=== PATIENT | male | born 1945 | race Caucasian/White ===

== ENCOUNTER 2018-10-11 06:02 | Inpatient (IN) | payer MEDICARE, OTHER ==
[~2018-10-11] VITALS: Ht 17.8 cm; Wt 61.7 kg
[2018-10-11] VITALS (12 sets, daily range): BP systolic 94–130; BP diastolic 49–72
--- NOTE | 2018-10-11 06:27 | NUR ---
GEETA FROM [facility]. TO ER BED 9. AAOX3. NO RESP DISTRESS NOTED, BREATHING EVEN AND UNLABORED. BROUGHT IN ABNORMAL LABS FROM SNF SENT BY PMD FOR FURTHER EVAL. PT HAS ELEVATED WBC REPORTED @ 22.71 AT FACILITY. PT IS AFEBRILE 98.8. AWAITING MD FOR EVAL.
--- NOTE | 2018-10-11 06:32 | NUR ---
IV LINE OBTAINED. LAB CALLED FOR BLOOD DRAW
--- NOTE | 2018-10-11 06:32 | NUR ---
EKG AT BEDSIDE
--- NOTE | 2018-10-11 06:45 | NUR ---
URINE COLLECTED VIA STRIGHT CATH NOTED YELLOWSIH GREENISH DISCHARGE FROM [facility]. AWARE
--- NOTE | 2018-10-11 06:50 | NUR ---
LAB AT BEDSIDE FOR DRAW
[2018-10-11] MEDS ORDERED: CEFTRIAXONE 1 G in IV D5W 50 ML IV ONE (07:00)
[2018-10-11] MEDS ORDERED: CEFTRIAXONE 1GM BAG (ER ONLY) 50 ML IV ONE (07:00)
[2018-10-11] MEDS ORDERED: FENTANYL PF 100MCG/2ML AMPUL ONE (07:00)
[2018-10-11] MEDS ORDERED: FENTANYL PF 100MCG/2ML AMPUL IV ONE (07:00)
[2018-10-11 07:09] LABS: APPEARANCE,URINE Cloudy (CLEAR); BILIRUBIN,URINE Negative (NEGATIVE); BLOOD, URINE Moderate Ery/uL (NEGATIVE); COLOR,URINE Yellow (YELLOW); KETONES,URINE Negative (NEGATIVE); LEUKOCYTE ESTERASE ,URINE Large (NEGATIVE); NITRITE, URINE Negative (NEGATIVE); PROTEIN,URINE >=300 mg/dl (NEGATIVE); UGLUCOSE Negative (NEGATIVE); UROBILINOGEN,URINE 0.2 EU/dL (0.2)
[2018-10-11 07:12] LABS: BASOPHILS % (AUTO) 0.1 % (0.0-2.0); HEMATOCRIT 42 % (39-51); HEMOGLOBIN 13.9 g/dL (13.5-17.5); LYMPHOCYTES # (AUTO) 0.8 /CMM (0.8-4.8); LYMPHOCYTES % (AUTO) 3.4 % (20.0-44.0); MEAN CORPUSCULAR HGB CONC 33 g/dl (31.0-36.0); MEAN CORPUSCULAR VOLUME 85 fL (80-96); MONOCYTES # (AUTO) 1.8 /CMM (0.1-1.30); MONOCYTES % (AUTO) 7.7 % (2.0-12.0); NEUTROPHILS # (AUTO) 20.3 /CMM (1.8-8.9); NEUTROPHILS % (AUTO) 88.8 % (43.0-81.0); PLATELET COUNT (AUTO) 285 /CMM (150-450); RED BLOOD CELL COUNT(AUTO) 4.93 MIL/uL (4.5-6.0); WHITE BLOOD COUNT (AUTO) 22.9 K/uL (4.3-11.0)
--- NOTE | 2018-10-11 07:17 | NUR ---
PT REFUSED PAIN MEDICATION ORDERED BY . AWARE
[2018-10-11 07:21] LABS: BACTERIA,URINE Few /HPF (None Seen); SQUAMOUS EPITHELIAL CELL,UR Few /HPF (None Seen); WBC,URINE 80-100 /HPF (0-3)
--- NOTE | 2018-10-11 07:31 | NUR ---
REPORT RECEIVED FROM ANALI LONG FOR CHRISTOPHER
--- NOTE | 2018-10-11 07:32 | NUR ---
INFORMED DR HERRERA OF PATIENTS HEART RATE OF 167, RECEIVED VERBAL ORDER OF NS 500CC TO RUN, CARRIED OUT
[2018-10-11 07:38] LABS: ALANINE AMINOTRANSFERASE 10 U/L (12-78); ALBUMIN 3.5 g/dL (3.4-5.0); ALKALINE PHOSPHATASE 93 U/L (46-116); ASPARTATE AMINOTRANSFERASE 5 U/L (15-37); BILIRUBIN,DIRECT 0.2 mg/dL (0.0-0.2); BILIRUBIN,TOTAL 0.5 mg/dL (0.2-1.0); CALCIUM, SERUM 9.5 mg/dL (8.5-10.1); CHLORIDE 88 mmol/L (98-107); GLUCOSE 127 mg/dL (74-106); SODIUM SERUM 121 mmol/L (136-145); TOTAL PROTEIN, SERUM 10.1 g/dL (6.4-8.2)
[2018-10-11 07:46] LABS: CARBON DIOXIDE 5 mmol/L (21-32); CREATININE 12.2 mg/dL (0.6-1.3); POTASSIUM 7.1 mmol/L (3.5-5.1); UREA NITROGEN, BLOOD 190 mg/dL (7-18)
[2018-10-11] MEDS ORDERED: Calcium Gluconate 0.465 MEQ/ML VIAL IV ONE (07:51)
[2018-10-11] MEDS ORDERED: INSULIN REGULAR, HUMAN 100 UNIT/ML 10 ML VIAL ONE (07:51)
[2018-10-11] MEDS ORDERED: DEXTROSE 50%-WATER 50 ML DISP.SYRIN ONE (07:51)
--- NOTE | 2018-10-11 07:54 | NUR ---
CALLED [facility] [phone] B[address]ER IS EMIGDIO
[2018-10-11] MEDS ORDERED: INSULIN REGULAR, HUMAN 100 UNIT/ML 10 ML VIAL IV ONE (08:00)
[2018-10-11] MEDS ORDERED: IV NS 0.9% 500 ML BAG IV ONE (08:00)
[2018-10-11] MEDS ORDERED: ALBUTEROL FS 2.5 MG/3 ML VIAL.NEB NEB ONE (08:00)
[2018-10-11] MEDS ORDERED: Calcium Gluconate 1GM/10ML 4.65 MEQ in IV NS 0.9% 50 ML IV ONE (08:00)
[2018-10-11] MEDS ORDERED: DEXTROSE 50%-WATER 50 ML DISP.SYRIN IVP ONE (08:00)
[2018-10-11] MEDS ORDERED: ALBUTEROL FS 2.5 MG/3 ML VIAL.NEB ONE (08:06)
--- NOTE | 2018-10-11 08:16 | NUR ---
RT AT BEDSIDE, STARTED W BREATHING TREATMENT
--- NOTE | 2018-10-11 08:40 | NUR ---
CALLED [facility] [phone]. EMIGDIO PAGED AGAIN.
[2018-10-11] MEDS ORDERED: CRAN425C6 PO (09:16)
[2018-10-11] MEDS ORDERED: DOCU-141 PO (09:16)
[2018-10-11] MEDS ORDERED: ACET-868 PO (09:16)
[2018-10-11] MEDS ORDERED: ACET-73 PO (09:16)
[2018-10-11] MEDS ORDERED: MAGN400O6 PO (09:17)
[2018-10-11] MEDS ORDERED: FOLI0.8T23 PO (09:17)
[2018-10-11] MEDS ORDERED: BISA10SU61 RC (09:17)
[2018-10-11] MEDS ORDERED: NA P133E RC (09:17)
[2018-10-11] MEDS ORDERED: TAMS-12 PO (09:17)
[2018-10-11] MEDS ORDERED: ASCO500T10 PO (09:17)
[2018-10-11] MEDS ORDERED: IV NS 0.9% 1,000 ML BAG IV ONE (09:30)
[2018-10-11 09:47] LABS: CALCIUM, SERUM 8.9 mg/dL (8.5-10.1); POTASSIUM 5.8 mmol/L (3.5-5.1)
[2018-10-11 09:49] LABS: CREATININE 12.1 mg/dL (0.6-1.3)
--- NOTE | 2018-10-11 10:00 | NUR ---
DR ESCOBAR AT BEDSIDE
--- NOTE | 2018-10-11 10:28 | NUR ---
CALLED FOR TELE BED.
--- NOTE | 2018-10-11 11:51 | NUR ---
CALLED NURSING LATEX SPOOLER FOR AN ICU BED.
[2018-10-11] MEDS ORDERED: Sodium Bicarbonate 150 MEQ in IV D5W 1,000 ML IV PRN (12:30)
[2018-10-11 13:07] LABS: URINE TOTAL PROTEIN 368.5 mg/dL (0-11.9)
[2018-10-11 13:16] LABS: CREATININE, URINE 47.8 MG/DL (30.0-125.0)
[2018-10-11] MEDS ORDERED: ZOLPIDEM TARTRATE 5 MG TABLET PO PRN (13:30)
[2018-10-11] MEDS ORDERED: ACETAMINOPHEN 325 MG TABLET PO PRN (13:30)
[2018-10-11] MEDS ORDERED: ONDANSETRON HCL/PF 4 MG/2 ML VIAL IVP PRN (13:30)
[2018-10-11] MEDS ORDERED: Z GUARD REMEDY 2 OZ OINT TP PRN (13:30)
[2018-10-11] MEDS ORDERED: MAG HYDROX/AL HYDROX/SIMETH 30 ML UDC PO PRN (13:30)
[2018-10-11] MEDS ORDERED: HYDROCODONE/APAP 5/325MG 1 EACH TABLET PO PRN (13:30)
[2018-10-11] MEDS ORDERED: MAGNESIUM HYDROXIDE 30 ML UDC PO PRN (13:30)
--- NOTE | 2018-10-11 13:38 | NUR ---
REPORT GIVEN TO AFSATU OF ICU
[2018-10-11] MEDS ORDERED: SODIUM POLYSTYRENE SULFONATE 15 G/60 ML BOTTLE PO ONE (14:00)
--- NOTE | 2018-10-11 14:24 | NUR ---
TIER LIFT TRUCK OPERATORPUBLIC SPEAKING COACH NOTES PT RECEIVED WITH DIAGNOSIS OF HYPERKALEMIA SECONDARY TO ACUTE RENAL FAILURE. HE IS A/O X2. NO SOB OR ACUTE SIGNS OF DISTRESS NOTED. BREATHING IS EVEN AND UNLABORED. HE DENIES ANY PAIN AT THIS TIME. VSS WITH THE EXCEPTION OF PT'S CORE TEMP READING OF 96.4. WILL INITIATE BEAR HUGGER ORDERED. INVASIVE LINES NOTED TO BE PATENT AND INTACT. NO REDNESS OR SIGNS OF INFILTRATION NOTED. REED CATHETER NOTED TO BE INTACT AND DRAINING WHAT APPEARS TO BE PUS. PT ORIENTED TO ROOM AND USE OF CALL LIGHT. BELONGINGS VERIFIED. MD AT BEDSIDE AND UPDATED ON PT'S CONDITION. WILL CONTINUE FURTHER ASSESSMENTS AND COMPLETE ADMISSION PROCESS
[2018-10-11] MEDS: Sodium Acetate 150 MEQ in IV D5W 1,000 ML IV PRN (14:44)
[2018-10-11] MEDS: CITRIC ACID/SODIUM CITRATE (BICITRA)15 ML UDC PO SCH ×3 (14:44→20:12)
[2018-10-11 15:10] LABS: CALCIUM, SERUM 8.9 mg/dL (8.5-10.1)
[2018-10-11 15:17] LABS: CREATININE 11.6 mg/dL (0.6-1.3); POTASSIUM 6.2 mmol/L (3.5-5.1)
--- NOTE | 2018-10-11 15:32 | NUR ---
ICU R NOTES: CRITICAL LAB (S) DR OROSCO MADE AWARE OF PT'S MST RECENT BNP RESULTS (IN PARTICULAR K+, BUN, CREAT, CL-) . NO NEW ORDERS GIVEN AT THIS TIME.
--- NOTE | 2018-10-11 17:43 | NUR ---
GAS MAIN AND LINE FITTER NOTES: CODE STATUS PT'S POLST FAXED FROM [facility] INDICATING THAT HE WISHED TO BE DNR. DR OROSCO MADE AWARE. TELEPHONE ORDER OBTAINED TO CHANGE PT'S CODE STATUS TO DNR INDICATED IN POLST
--- NOTE | 2018-10-11 18:56 | NUR ---
TANK REFINISHER CLOSING NOTES PT REMAINS STABLE POST ADMISSION. VSS. HE HAS A CURRENT TEMP OF 98.3. HE CONTINUES TO DENY ANY CHEST PAIN OR FURTHER PAIN. INVASIVE LINES REMAIN PATENT AND INTACT. SAFETY MEASURES REMAIN IN PLACE. WILL ENDORSE TO NIGHTSHIFT RN FOR CHRISTOPHER
--- NOTE | 2018-10-11 19:33 | NUR ---
RN NOTE RECEIVED PATIENT IN BED, NO RESPIRATORY DISTRESS NOTED, NO S/S OF PAIN OR DISCOMFORT NOTED, BP 96/58, SPO2 95%AFEBRILE, OPENS EYES, DOES NOT FOLLOW COMMANDS, ALL SAFETY MEASURES TAKEN, WILL CONTINUE TO MONITOR PATIENT
[2018-10-12] VITALS (26 sets, daily range): BP systolic 86–113; BP diastolic 47–66
[2018-10-12] MEDS: Sodium Acetate 150 MEQ in IV D5W 1,000 ML IV PRN (00:01)
[2018-10-12 04:50] LABS: BASOPHILS % (AUTO) 0.2 % (0.0-2.0); EOSINOPHILS % (AUTO) 0.2 % (0.0-6.0); HEMATOCRIT 36 % (39-51); HEMOGLOBIN 12.1 g/dL (13.5-17.5); LYMPHOCYTES # (AUTO) 0.6 /CMM (0.8-4.8); LYMPHOCYTES % (AUTO) 3.7 % (20.0-44.0); MEAN CORPUSCULAR HGB CONC 33 g/dl (31.0-36.0); MEAN CORPUSCULAR VOLUME 84 fL (80-96); MONOCYTES # (AUTO) 1.4 /CMM (0.1-1.30); MONOCYTES % (AUTO) 9.3 % (2.0-12.0); NEUTROPHILS # (AUTO) 13.3 /CMM (1.8-8.9); NEUTROPHILS % (AUTO) 86.6 % (43.0-81.0); PLATELET COUNT (AUTO) 240 /CMM (150-450); RED BLOOD CELL COUNT(AUTO) 4.34 MIL/uL (4.5-6.0); WHITE BLOOD COUNT (AUTO) 15.3 K/uL (4.3-11.0)
[2018-10-12 05:06] LABS: ALBUMIN 2.6 g/dL (3.4-5.0); BILIRUBIN,TOTAL 0.4 mg/dL (0.2-1.0); CALCIUM, SERUM 8.1 mg/dL (8.5-10.1); MAGNESIUM 2.4 mg/dL (1.8-2.4); POTASSIUM 3.6 mmol/L (3.5-5.1); TOTAL PROTEIN, SERUM 7.8 g/dL (6.4-8.2)
[2018-10-12 05:15] LABS: CREATININE 9.6 mg/dL (0.6-1.3)
[2018-10-12 05:18] LABS: THYROID STIMULATING HORMONE 1.517 uIU/mL (0.358-3.74)
[2018-10-12] MEDS: CEFTRIAXONE 1 G in IV D5W 50 ML IV SCH (06:14)
--- NOTE | 2018-10-12 07:54 | NUR ---
WOUND CARE CONSULT: PT PRESENTS WITH SCARRING AND HEMOSIDERIN STAINING TO LOWER LEGS, SLIGHT RASH TO BUTTOCKS AND RASH TO BACK, PRESENT ON ADMISSION. Z GUARD IN USE FOR BUTTOCKS. DEFER TO MD FOR BACK RASH. RECOMMENDATIONS MADE FOR SKIN PROTECTION. DISCUSSED WITH NURSING STAFF. BRIANNA VAZQUEZ NOTED. WILL SEE PRN. MD IN AGREEMENT WITH PLAN OF CARE. Addendum: 10/12/18 at 0756 by TRACEY AVINA WNDNU Amended: Links added.
--- NOTE | 2018-10-12 08:00 | NUR ---
ICU/RN: INITIAL NOTES,AM RECEIVED REPORT FROM NIGHT NURSE. PT ALERT, FOLLOWS COMMANDS, SLEEPING HOWEVER, EASILY AROUSED. PT ON ROOM AIR,NO ACUTE DISTRESS NOTED. VSS. WOUND CARE NURSE AT BEDSIDE, SKIN ASSESSMENT COMPLETED. PT ON TELE, SINUS R. REED CATH IN PLACE, DRAINING CLOUDY, YELLOW URINE. PT REFUSES BREAKFAST. ALL NEEDS WILL BE ATTENDED TO,SAFETY MEASURE TAKEN, BED IN LOW POSITION, SIDE RAILS UP, CALL LIGHT WITHIN REACH. WILL CONTINUE CARE.
[2018-10-12] MEDS: CITRIC ACID/SODIUM CITRATE (BICITRA)15 ML UDC PO SCH ×4 (08:39→20:58)
[2018-10-12] MEDS: Sodium Bicarbonate 150 MEQ in IV D5W 1,000 ML IV PRN ×2 (10:09→21:30)
--- NOTE | 2018-10-12 17:00 | NUR ---
ICU/RN: PT REFUSED MEDICATION BICITRA AT 0900 AND 1700. ALSO REFUSED TO EAT BREAKFAST, LUNCH OR DINNER. EDUCATED AND ASKED HIM AGAIN. PT CONTINUES TO REFUSE
--- NOTE | 2018-10-12 18:58 | NUR ---
ICU/RN ENDING NOTES,AM REPORT WILL BE ENDORSED TO NIGHT NURSE FOR CHRISTOPHER. ALL NEEDS ATTENDED TO, PT ON ROOM AIR, NO DISTRESS NOTED. SINUS ON TELE. SAFETY MEASURES TAKEN, BED IN LOW POSITION, SIDE RAILS UP, CALL LIGHT WITHIN REACH. REED DRAINING URINE. BED BATH GIVEN, PT ENCOURAGED TO TURN AND REPOSITION.
--- NOTE | 2018-10-12 20:00 | NUR ---
VEGETABLE COOK - NOTES - RECEIVED PT IN BED AWAKE, ALERT, FOLLOWS COMMANDS. PT ON ROOM AIR, NO ACUTE DISTRESS NOTED. VSS. PT ON TELE, SINUS RHYTHM. REED CATH IN PLACE, DRAINING CLOUDY, YELLOW URINE. ALL NEEDS WILL BE ATTENDED TO, SAFETY MEASURE TAKEN, BED IN LOW POSITION, SIDE RAILS UP, CALL LIGHT WITHIN REACH. WILL CONTINUE CARE.
[2018-10-13] VITALS (21 sets, daily range): BP systolic 83–120; BP diastolic 38–93
[2018-10-13 04:51] LABS: BASOPHILS % (AUTO) 0.1 % (0.0-2.0); EOSINOPHILS % (AUTO) 0.3 % (0.0-6.0); HEMATOCRIT 30 % (39-51); HEMOGLOBIN 10.5 g/dL (13.5-17.5); LYMPHOCYTES # (AUTO) 0.7 /CMM (0.8-4.8); LYMPHOCYTES % (AUTO) 5.5 % (20.0-44.0); MEAN CORPUSCULAR HGB CONC 35 g/dl (31.0-36.0); MEAN CORPUSCULAR VOLUME 82 fL (80-96); MONOCYTES # (AUTO) 1.6 /CMM (0.1-1.30); MONOCYTES % (AUTO) 12.2 % (2.0-12.0); NEUTROPHILS % (AUTO) 81.9 % (43.0-81.0); PLATELET COUNT (AUTO) 205 /CMM (150-450); RED BLOOD CELL COUNT(AUTO) 3.63 MIL/uL (4.5-6.0); WHITE BLOOD COUNT (AUTO) 13.4 K/uL (4.3-11.0)
[2018-10-13 05:07] LABS: ALBUMIN 2.4 g/dL (3.4-5.0); BILIRUBIN,TOTAL 0.4 mg/dL (0.2-1.0); CALCIUM, SERUM 7.2 mg/dL (8.5-10.1); CREATININE 6.6 mg/dL (0.6-1.3); PHOSPHORUS 6.3 mg/dL (2.5-4.9); TOTAL PROTEIN, SERUM 7.1 g/dL (6.4-8.2)
[2018-10-13 05:12] LABS: POTASSIUM 2.6 mmol/L (3.5-5.1)
[2018-10-13] MEDS ORDERED: POTASSIUM CHLORIDE 20 MEQ TAB.PRT.SR PO ONE ×3 (06:00→08:00)
[2018-10-13] MEDS: CEFTRIAXONE 1 G in IV D5W 50 ML IV SCH (06:04)
--- NOTE | 2018-10-13 07:00 | NUR ---
RECEIVED PATIENT ,AWAKE,ALERT , CALM AND COOPERATIVE, FOLLOWS COMMANDS,SEEMS COHERENT,BUT DOES NOT ANSWER ALL QUESTIONS.MOVES ALL EXTREMITIES.NOT IN ANY DISTRESS,BREATHING NON LABORED.REED CATHETER NOTED TO HAVE CLOUDY/PUSS LIKE OUTPUT. COMFORT CARE DONE,NEEDS ATTENDED. Addendum: 10/13/18 at 2317 by MICHAEL SANDERS RN DISREGARD ABIVE NOTE,ENTERED AT WRONG TIME.CORRECT TIME 1900.
[2018-10-13] MEDS: CITRIC ACID/SODIUM CITRATE (BICITRA)15 ML UDC PO SCH ×5 (08:17→21:09)
--- NOTE | 2018-10-13 09:19 | NUR ---
rn notes 729-received patient from rn. patient remains orally intubated, not following commands this time. levophed at 2 mcg/min for bp support. on Afib rhyhtm, monitor, patient placed on CPA earlier, monitor status. 08-Dr. Farris ordered IV dig, administered as ordered. continue monitor [phone]-daughterkimberly called for update. jalil rahman visits, updated him as well Addendum: 10/13/18 at 1122 by LAURA WILSON RN delete this note, intended for another patient
[2018-10-13] MEDS ORDERED: IV NS 0.9% 500 ML BAG IV ONE (10:30)
--- NOTE | 2018-10-13 11:23 | NUR ---
rn notes 0730-received patient from RN. patient awake, alert, does not respond to voice this time. 0930-seen by Dr. Negron earlier, updated MD of patient status. Dr. Farris also made rounds, also updated of patient status. patient tolerated food consistency well. patient denies pain. 1115-several attempts to insert iv line, unable, supervisor leaf spring repair notified for midline.patient offered pain medication earlier as he was sounding in pain but declined, positioned for comfort.
--- NOTE | 2018-10-13 13:01 | NUR ---
rn notes 1300-offered lunch tray, he refused; offered to clean him, he refused as well.patient passive
--- NOTE | 2018-10-13 13:34 | NUR ---
GUM ROLLING MACHINE TENDER RECEIVING NOTE RECEIVED PATIENT FROM ICU. REPORT TAKEN FROM ETHAN SANCHEZ. PT IN BED AWAKE, A/O X 3. PATIENT ON ROOM AIR, NO SOB OR ACUTE DISTRESS NOTED. POTASSIUM LEVELS AND KIDNEY FUNCTION BEING MONITORED. PT ON TELE, SINUS RHYTHM 81. REED CATHETR INTACT AND PATENT DRAINING CLOUDY YELLOW URINE. NO IV ACCESS CURRENTLY D/T PATIENT REFUSAL. MIDLINE RN TO BE SECURED FOR ATTEMPT AT AN IV. SAFETY MEASURES IN PLACE. BED IN LOW LOCKED POSITION, SIDE RAILS UP, CALL LIGHT WITHIN REACH. WILL CONTINUE TO MONITOR.
--- NOTE | 2018-10-13 13:46 | NUR ---
rn notes patient awake, alert, no sign of distress.transported safely to [facility], report given to rn for further care.
--- NOTE | 2018-10-13 14:00 | NUR ---
CARD PAINTER NOTE MIDLINE INSERTION ATTEMPTED BUT UNSUCCESSFUL. US GUIDED #20 IV INSERTED.
[2018-10-13 14:19] LABS: *SPE A/G RATIO 0.7 (0.7-1.7); *SPE ALBUMIN 2.9 g/dL (2.9-4.4); *SPE ALPHA-1-GLOBULIN 0.4 g/dL (0.0-0.4); *SPE ALPHA-2-GLOBULIN 0.8 g/dL (0.4-1.0); *SPE GLOBULIN, TOTAL 4.1 g/dL (2.2-3.9); *SPE M-SPIKE Not Observed g/dL (Not Observed)
[2018-10-13 15:18] LABS: PTH, INTACT 156 pg/mL (15-65)
--- NOTE | 2018-10-13 19:00 | NUR ---
RECEIVED PATIENT AWAKE,ALERT, ANSWERING QUESTIONS BUT NOT TO ALL,SEEMS COHERENT ,ORIENTED,FOLLOWS COMMANDS.NOT IN ANY DISTRESS. REED CATHETER INTACT NOTED TO HAVE CLOUDY/PUS LIKE OUTPUT.COMFORT CARE DONE ,NEEDS ATTENDED.
--- NOTE | 2018-10-13 19:30 | NUR ---
ABRADING MACHINE TENDER CLOSING NOTE PATIENT IN BED AWAKE AND WATCHING TV. A/O X 2-3. PATIENT ON ROOM AIR, NO SOB OR ACUTE DISTRESS NOTED. POTASSIUM LEVELS AND KIDNEY FUNCTION BEING MONITORED. POTASSIUM CURRENTLY WNL. PT ON TELE, SINUS RHYTHM 88. REED CATHETER INTACT AND PATENT DRAINING CLOUDY YELLOW URINE. 1800CC OUTPUT. MIDLINE RN PLACED US GUIDED #[address] IV[address]. BED IN LOW LOCKED POSITION, SIDE RAILS UP, CALL LIGHT WITHIN REACH. CARE ENDORSED TO ROAD PASSENGER FIRER RN. .
--- NOTE | 2018-10-13 21:00 | NUR ---
PRN NORCO GIVEN ,C/O PAIN IN THE RIGHT KNEE. BUT REFUSED TO TAKE OTHER DUE MEDS(BICITRA).PATIENT ALSO NOTED TO BE UNCOOPERATIVE AND GETTING A LITTLE AGGRESSIVE.
--- NOTE | 2018-10-13 21:30 | NUR ---
PATIENT GETTING AGITATED,GETTING OUT OF BED,SCREAMING ,CURSING AND FIGHTING STAFF. 2200 REMAINS AGITATED AND FIGHTING EVEN AFTER CLEANING HIM UP AND AFTER PSYCHOLOGICAL SUPPORT .PLACED ON BILATERAL SOFT WRIST RESTRAINTS.
--- NOTE | 2018-10-13 22:15 | NUR ---
DR SOLORZANO IN THE UNIT, REFERRED ABOUT PATIENTS AGITATION AND AGGRESSIVE BEHAVIOR, ORDERED ATIVAN 1 MG. IV Q 6 HRS FOR AGITATION AND OBTAINED ORDER FOR RESTRAINTS.
[2018-10-13] MEDS ORDERED: LORAZEPAM INJ 2 MG/ML VIAL IV PRN (22:30)
--- NOTE | 2018-10-13 22:40 | NUR ---
ATIVAN 1 MG. IVP GIVEN FOR AGITATION. 2300 PATIENT EASILY GOT SEDATED,CALM,QUIET AND VERY DROWSY. BRIEFLY DROPPED BP IN THE S0'S SYSTOLIC AFTER THE ATIVAN, WILL CLOSELY MONITOR. PLACED ON CONTINUOUS O2 SATURATION MONITORY. NOTED TO DESATURATE ON AND OFF IN THE 80'S. OXYGEN APLLIED VIA NASAL CANNULA 3L/MIN.WILL CLOSELY MONITOR RESPIRATORY STATUS WELL.
[2018-10-14] VITALS (7 sets, daily range): BP systolic 93–117; BP diastolic 55–74
--- NOTE | 2018-10-14 | NUR ---
STILL VERY DROWSY FROM THE ATIVAN ,AROUSABLE WITH SHAKING,MOANS,MOVES EXTREMITIES BUT EASILY FALLS BACK TO SLEEP.BP IN THE 90'S SYSTOLIC.WILL CONTINUE TO MONITOR,WILL KEEP OXYGEN ON FOR NOW TILL PATIENT IS FULLY AWAKE.
--- NOTE | 2018-10-14 02:00 | NUR ---
STILL DROWSY FROM THE ATIVAN BUT MORE RESPONSIVE NOW, MOVES IN BED, SATURATING 96-100 % WITH NASAL CANNULA .
--- NOTE | 2018-10-14 04:00 | NUR ---
AM CARE DONE, PATIENT AWAKE NOW, STILL RESTLESS,TRYING TO GET OFF RESTRAINTS. 0600 STABLE ,STILL DROWSY BUT EASILY AWAKENS,NOT IN ANY DISTRESS.
[2018-10-14] MEDS: CEFTRIAXONE 1 G in IV D5W 50 ML IV SCH (06:14)
[2018-10-14 06:50] LABS: BASOPHILS % (AUTO) 0.1 % (0.0-2.0); EOSINOPHILS % (AUTO) 0.4 % (0.0-6.0); HEMATOCRIT 30 % (39-51); HEMOGLOBIN 10.2 g/dL (13.5-17.5); LYMPHOCYTES # (AUTO) 0.8 /CMM (0.8-4.8); LYMPHOCYTES % (AUTO) 5.7 % (20.0-44.0); MEAN CORPUSCULAR HGB CONC 34 g/dl (31.0-36.0); MEAN CORPUSCULAR VOLUME 84 fL (80-96); MONOCYTES % (AUTO) 13.6 % (2.0-12.0); NEUTROPHILS # (AUTO) 11.5 /CMM (1.8-8.9); NEUTROPHILS % (AUTO) 80.2 % (43.0-81.0); PLATELET COUNT (AUTO) 194 /CMM (150-450); WHITE BLOOD COUNT (AUTO) 14.4 K/uL (4.3-11.0)
[2018-10-14 07:21] LABS: ALBUMIN 2.3 g/dL (3.4-5.0); BILIRUBIN,TOTAL 0.4 mg/dL (0.2-1.0); CALCIUM, SERUM 7.5 mg/dL (8.5-10.1); CREATININE 4.8 mg/dL (0.6-1.3); MAGNESIUM 1.8 mg/dL (1.8-2.4); PHOSPHORUS 4.7 mg/dL (2.5-4.9); POTASSIUM 3.3 mmol/L (3.5-5.1); TOTAL PROTEIN, SERUM 7.4 g/dL (6.4-8.2)
--- NOTE | 2018-10-14 07:30 | NUR ---
CINDY RN OPENING NOTES RECEIVED REPORT FROM [facility] SHIFT NURSE. PATIENT SLEEPING IN BED, ON ROOM AIR, TOLERATING WELL, RESPIRATIONS EVEN AND UNLABORED, NO SIGNS OF RESPIRATORY DISTRESS NOTED. BILATERAL WRIST RESTRAINTS WERE MOVED TO CHECK FOR SKIN INTEGRITY AND CIRCULATION AND REAPPLIED FOR PATIENT'S SAFETY (PT TRYING TO PULL OUT IV LINES) PATIENT ON PENSIONS RETIREMENT PLAN SPECIALIST, SINUS RHYTHM. CHARLIE G20 SALINE LOCK INTACT, PATENT. REED CATHETER DRAINING YELLOW, CLOUDY URINE. BED KEPT IN LOW POSITION, LOCKED, CALL LIGHT PLACED WITHIN REACH. Addendum: 10/15/18 at 2002 by KATHI DOMINGO RN RN OPENING NOTES RECEIVED REPORT FROM [facility] SHIFT NURSE. PATIENT SLEEPING IN BED, ON ROOM AIR, TOLERATING WELL, RESPIRATIONS EVEN AND UNLABORED, NO SIGNS OF RESPIRATORY DISTRESS NOTED. RN OPENING NOTES BILATERAL WRIST RESTRAINTS WERE REMOVED TO CHECK FOR SKIN INTEGRITY AND CIRCULATION AND REAPPLIED FOR PATIENT'S SAFETY (PT TRYING TO PULL OUT IV LINES)- REMAIN OFF UNTIL PT SHOWS NEED FOR THEM. PT IS NOW MS. CHARLIE G20 SALINE LOCK INTACT, PATENT. REED CATHETER DRAINING YELLOW, CLOUDY URINE. BED KEPT IN LOW POSITION, LOCKED, CALL LIGHT PLACED WITHIN REACH WILL CONT TO MONITER. Addendum: 10/15/18 at 2002 by KATHI LISSAUER RN MERE PHILIP RN OPENING NOTES
[2018-10-14] MEDS: CITRIC ACID/SODIUM CITRATE (BICITRA)15 ML UDC PO SCH ×4 (09:52→20:09)
--- NOTE | 2018-10-14 19:16 | NUR ---
CLOSING RN CINDY NOTES ENDORSED REPORT TO NOC SHIFT NURSE. PROVIDED SAFETY AND COMFORT TO PATIENT THROUGHOUT SHIFT, STABLE THROUGHOUT SHIFT. BED IS IN LOW POSITION, LOCKED, CALL LIGHT WITHIN REACH. BILATERAL SOFT WRIST RESTRAINTS ON, CHECKED AND RELEASED RESTRAINTS THROUGHOUT SHIFT TO CHECK SKIN INTEGRITY AND CIRCULATION. PATIENT ON ROOM AIR, TOLERATING WELL. RESPIRATIONS EASY AND UNLABORED, NO SIGNS OF ACUTE RESPIRATORY DISTRESS NOTED.
--- NOTE | 2018-10-14 19:41 | NUR ---
TD RN NOTES RECEIVED PT ON BED. ON ROOM AIR NO RESPIRATORY DISTRESS NOTED. A/O X1 . ON REED CATH DRAINING YELLOW URINE. ON TELE MONITOR SR. IV ACCESS PATENT AND INTACT. HEAD OF BED ELEVATED. SIDE RAILS UP. CALL LIGHT WITHIN REACH. BED ALARM ON. WILL CONTINUE TO MONITOR PT CLOSELY.
[2018-10-15] VITALS: BP 104/63
[2018-10-15 04:00] VITALS: BP 116/66
--- NOTE | 2018-10-15 04:12 | NUR ---
TD RN NOTES CALLED [facility] REGARDING PT NO AM LABS. PER PROJECT MANAGEMENT PROFESSOR DR. RICE TO ORDER CBC, CMP.
[2018-10-15] MEDS: CEFTRIAXONE 1 G in IV D5W 50 ML IV SCH (06:11)
--- NOTE | 2018-10-15 07:04 | NUR ---
TD RN NOTES NO ACUTE CHANGES NOTED DURING THE SHIFT. PROVIDED COMFORT AND SAFETY. NO RESPIRATORY DISTRESS NOTED. WILL ENDORSE TO THE AM NURSE FOR CONTINUITY OF CARE.
--- NOTE | 2018-10-15 07:07 | NUR ---
TD RN OPENING NOTES RECEIVED REPORT FROM [facility] SHIFT NURSE. PATIENT SLEEPING IN BED, ON ROOM AIR, TOLERATING WELL, RESPIRATIONS EVEN AND UNLABORED, NO SIGNS OF RESPIRATORY DISTRESS NOTED. BILATERAL WRIST RESTRAINTS WERE REMOVED TO CHECK FOR SKIN INTEGRITY AND CIRCULATION AND REAPPLIED FOR PATIENT'S SAFETY. PATIENT ON FULL STACK WEB DEVELOPER, SINUS RHYTHM. CHARLIE G20 SALINE LOCK INTACT, PATENT. BED IN LOW POSITION, LOCKED, CALL LIGHT PLACED WITHIN REACH.
[2018-10-15 07:19] LABS: BASOPHILS % (AUTO) 0.1 % (0.0-2.0); EOSINOPHILS % (AUTO) 1.3 % (0.0-6.0); HEMATOCRIT 30 % (39-51); LYMPHOCYTES # (AUTO) 0.8 /CMM (0.8-4.8); LYMPHOCYTES % (AUTO) 6.5 % (20.0-44.0); MEAN CORPUSCULAR HGB CONC 33 g/dl (31.0-36.0); MEAN CORPUSCULAR VOLUME 84 fL (80-96); MONOCYTES # (AUTO) 1.1 /CMM (0.1-1.30); MONOCYTES % (AUTO) 9.1 % (2.0-12.0); NEUTROPHILS # (AUTO) 9.9 /CMM (1.8-8.9); PLATELET COUNT (AUTO) 197 /CMM (150-450); RED BLOOD CELL COUNT(AUTO) 3.59 MIL/uL (4.5-6.0); WHITE BLOOD COUNT (AUTO) 11.9 K/uL (4.3-11.0)
[2018-10-15 07:30] LABS: ALBUMIN 2.2 g/dL (3.4-5.0); BILIRUBIN,TOTAL 0.4 mg/dL (0.2-1.0); CREATININE 3.7 mg/dL (0.6-1.3); POTASSIUM 3.1 mmol/L (3.5-5.1); TOTAL PROTEIN, SERUM 7.5 g/dL (6.4-8.2)
[2018-10-15 08:00] VITALS: BP 125/71
[2018-10-15] MEDS: CITRIC ACID/SODIUM CITRATE (BICITRA)15 ML UDC PO SCH ×4 (09:31→20:45)
[2018-10-15 16:00] VITALS: BP 116/71
--- NOTE | 2018-10-15 19:15 | NUR ---
ENDORSED REPORT TO [facility] SHIFT NURSE. PROVIDED SAFETY AND COMFORT TO PATIENT THROUGHOUT SHIFT. ALL DUE MEDS GIVEN. PATIENT WAS TURNED AND REPOSITIONED EVERY 2 HOURS. IN STABLE CONDITION THROUGHOUT SHIFT. INTAKE 800ML, OUTPUT 1400ML.
[2018-10-15 20:00] VITALS: BP 129/77
--- NOTE | 2018-10-15 20:04 | NUR ---
RN OPNENING NOTES: \ . PATIENT SLEEPING IN BED, ON ROOM AIR, TOLERATING WELL, RESPIRATIONS EVEN AND UNLABORED, NO SIGNS OF RESPIRATORY DISTRESS NOTED. CHARLIE G20 SALINE LOCK INTACT, PATENT. BED IN LOW POSITION, LOCKED, CALL LIGHT PLACED WILL CONTINUE TO MONITER. SAFETY PREECATUIONS IN PLACE.
[2018-10-16] VITALS: BP 129/77
[2018-10-16 04:00] VITALS: BP 118/58
[2018-10-16] MEDS: CEFTRIAXONE 1 G in IV D5W 50 ML IV SCH (06:03)
--- NOTE | 2018-10-16 07:10 | NUR ---
MS RN OPENING NOTES: RECEIVED REPORT FROM PM NURSE.PATIENT SLEEPING IN BED, ON ROOM AIR, TOLERATING WELL, RESPIRATIONS EVEN AND UNLABORED, NO SIGNS OF RESPIRATORY DISTRESS NOTED.EASILY AWAKEN.AXOX1-2 WITH FORGETFUL. IV INTACT AND PATENT. BED IN LOW POSITION, LOCKED, CALL LIGHT IN REACH.BED ALARM ON.WILL CONTINUE TO MONITOR.
--- NOTE | 2018-10-16 07:29 | NUR ---
RN CLOSING NOTES PT IN BED RESTING COMFORTABLY. ON ROOM AIR NO RESPIRATORY DISTRESS NOTED. A/O X1 NO CHANGES DURING SHIFT OVER NIGHT. ON REED CATH DRAINING YELLOW URINE 900 OUT. ON TELE MONITOR SR. IV ACCESS PATENT AND INTACT. HEAD OF BED ELEVATED. SIDE RAILS UP. CALL LIGHT WITHIN REACH. BED ALARM ON. WILL ENDORSE TO AM SHIFT TO CARRY OUT PLAN OF CARE.
[2018-10-16 08:00] VITALS: BP 104/63
[2018-10-16] MEDS: CITRIC ACID/SODIUM CITRATE (BICITRA)15 ML UDC PO SCH ×2 (08:02→12:43)
--- NOTE | 2018-10-16 12:28 | NUR ---
MS RN NOTE SEEN BY JAZMYN BRANDON,UPDATED ABOUT PATIENT CONDITION WITH LAB VALUES FROM YESTERDAY,MADE AWARE THAT NO LABS DONE TODAY.OK TO BE GET DISCHARGE WITH ANTIBIOTICS TO CONTINUE .
--- NOTE | 2018-10-16 13:10 | NUR ---
MS TELEPHONE SOLICITOR SUPERVISOR NOTE PATIENT D/C TO [facility] IN STABLE CONDITION.NO SOB NO DISTRESS NOTED.AXOX1.WITH PERIODS OF FORGETFULNESS.VITAL SIGNS STABLE.EXIT CARE GIVEN.POOR CONCENTRATION.PATIENT DONT HAVE GOOD UNDERSTANDING ABOUT HIS CONDITION AND MEDICATION.REPORT GIVEN TO AYE LONG AT FACILITY.TOOK ALL BELONGINGS,JEWELRY.CHARLIE IV INTACT AND PATENT.REED CATHETER FOR OBSTRUCTIVE UROPATHY PER JAZMYN BRANDON.REPORT GIVEN TO EMT.DISCHARGE FOLDER GIVEN.LEFT WITH EMT.
== END 2018-10-16 15:06 | DRG 871 ==
LOC: ER 06:04 → ICU 13:18 → TELE-TD 10-13 09:52 → ICU 10-13 10:08 → TELE-TD 10-13 12:57 → MEDSG1 10-15 10:43
PROVIDERS: ADMIT Hospitalist; ATTEND Hospitalist
PROC: 05HB33Z Insertion of Infusion Device into Right Basilic Vein, Percutaneous Approach (ICD-10-PCS; principal; 2018-10-13)
PROC: B54MZZA Ultrasonography of Right Upper Extremity Veins, Guidance (ICD-10-PCS; 2018-10-13)
DX: A41.9 Sepsis, unspecified organism (principal); N17.0 Acute kidney failure with tubular necrosis; G92 Toxic encephalopathy; E87.1 Hypo-osmolality and hyponatremia; N13.6 Pyonephrosis; N39.0 Urinary tract infection, site not specified; E87.2 Acidosis; R65.20 Severe sepsis without septic shock; E87.5 Hyperkalemia; I12.9 Hypertensive chronic kidney disease with stage 1 through stage 4 chronic kidney disease, or unspecified chronic kidney disease; N18.9 Chronic kidney disease, unspecified; Z87.440 Personal history of urinary (tract) infections; M19.90 Unspecified osteoarthritis, unspecified site; Z86.19 Personal history of other infectious and parasitic diseases; E86.1 Hypovolemia; N40.0 Benign prostatic hyperplasia without lower urinary tract symptoms; Z88.0 Allergy status to penicillin; E87.6 Hypokalemia
CPT/HCPCS: 36415; 36569; 71045-TC; 80048-TC; 80053-TC; 80061-TC; 80076-TC; 81000-TC; 82550-TC; 82570-TC; 83605-TC; 83735-TC; 83970; 84100-TC; 84132-TC; 84155; 84155-TC; 84165; 84300-TC; 84443-TC; 84484-TC; 85025-TC; 85730-TC; 87040-TC; 87086-TC; A4216; C1751; G0378; J0610; J0696; J1815; J2060; J3010; J3490; J7030; J7040; J7050; J7060; J7070